=== PATIENT | female | born 1945 | race Caucasian/White ===

== ENCOUNTER 2019-07-26 10:30 | Emergency (ER) | payer OTHER ==
[~2019-07-26] VITALS: Ht 160 cm; Wt 81.7 kg
[~2019-07-26 10:30] MED LIST: DARVOCET-N 1001 EACH PO; FEMARA2.5 MG PO; IBUPROFEN 600600 M1 PO; VALIUM2 MG PO
[2019-07-26] MEDS ORDERED: ONDANSETRON HCL4 M2 PO (12:21)
[2019-07-26] MEDS ORDERED: NORCO 5-325 TA1 EAC1 PO (12:21)
[2019-07-26] MEDS ORDERED: LIDOCAINE PAIN1 EACH TRANSDERM (12:24)
[2019-07-26 13:52] VITALS: BP 132/86
== END 2019-07-26 13:59 | disposition home or self-care (01) ==
LOC: ER 10:30
DX: K45.8 Other specified abdominal hernia without obstruction or gangrene (principal); M54.9 Dorsalgia, unspecified; I10 Essential (primary) hypertension; M25.561 Pain in right knee; M25.511 Pain in right shoulder; M79.7 Fibromyalgia; F17.210 Nicotine dependence, cigarettes, uncomplicated; Z85.3 Personal history of malignant neoplasm of breast; Z88.2 Allergy status to sulfonamides; V89.0XXA Person injured in unspecified motor-vehicle accident, nontraffic, initial encounter; Y93.89 Activity, other specified; Y92.89 Other specified places as the place of occurrence of the external cause; Y99.8 Other external cause status

== ENCOUNTER 2020-03-16 17:46 | Emergency (ER) | payer OTHER ==
[~2020-03-16] VITALS: Ht 162.6 cm; Wt 81.7 kg
[~2020-03-16 17:46] MED LIST changes: +LIDOCAINE PAIN1 EACH TRANSDERM; +NORCO 5-325 TA1 EAC1 PO; +ONDANSETRON HCL4 M2 PO
[2020-03-16] MEDS ORDERED: VENLAFAXINE HCL75 MG PO (18:04)
[2020-03-16] MEDS ORDERED: LIPITOR20 MG PO (18:05)
[2020-03-17 00:44] VITALS: BP 187/91
== END 2020-03-17 00:45 | disposition home or self-care (01) ==
LOC: ER 17:46
DX: S43.401A Unspecified sprain of right shoulder joint, initial encounter (principal); M25.522 Pain in left elbow; R07.81 Pleurodynia; I10 Essential (primary) hypertension; Z79.899 Other long term (current) drug therapy; Z88.2 Allergy status to sulfonamides; W18.39XA Other fall on same level, initial encounter; Y93.89 Activity, other specified; Y92.89 Other specified places as the place of occurrence of the external cause; Y99.8 Other external cause status